=== PATIENT | female | born 1940 | race Caucasian/White ===

== ENCOUNTER → 2019-02-26 | Outpatient (CLI) | payer MEDICARE ==
--- NOTE | 2019-02-26 13:19 | Diagnostic Imaging Report ---
EXAM: Bone mineral density study 02/26/2019 9:32 AM INDICATION: ^SCREENING FOR OSTEOPOROSIS COMPARISON: Previous DEXA none. Baseline DEXA none FINDINGS: Evaluation of the left hip and lumbar spine was performed. The study is technically adequate. The patient's fracture risk is compared to an age-matched control. The patient denies prior surgery/fracture of the spine, hips or forearm. LEFT HIP * Femoral neck bone mineral density: 0.963 gm/cm2, T-score is 1.0, Z-score is 3.2. * Total bone mineral density: 0.898 gm/cm2, T-score is -0.4, Z-score is 1.5. LUMBAR SPINE * Total bone mineral density: 1.394 gm/cm2, T-score is 3.2, Z-score is 5.7. IMPRESSION: 1. LEFT HIP: Bone mineralization by WHO Classification is normal, the fracture risk is not increased. 2. LUMBAR SPINE: Bone mineralization by WHO Classification is normal, the fracture risk is not increased. <T score: NL = -1 or higher Osteopenia = -1 to -2.5 Osteoporosis = -2.5 or lower Z score: < - 2 concerning for path> Signed by: Dr. Luis Banks M.D. on 02/26/2019 1:16 PM
== END ==
LOC: DX 09:26
PROVIDERS: ATTEND Family Medicine
DX: Z13.820 Encounter for screening for osteoporosis (principal)
CPT/HCPCS: 77080